=== PATIENT | male | born 1985 | race Caucasian/White ===

== ENCOUNTER 2019-08-29 11:15 | Emergency (ER) | payer MEDICAID ==
[~2019-08-29] VITALS: Ht 188 cm; Wt 93.0 kg
[2019-08-29 11:20] VITALS: BP 146/88
[2019-08-29] MEDS ORDERED: LIDOcaine 1% 30ml preserv. free vial IJ ONE (11:35)
[2019-08-29] MEDS ORDERED: mupirocin 2% ointment 22GM TP STA (12:35)
[2019-08-29] MEDS ORDERED: ONDA4TAB6 PO (12:40)
[2019-08-29] MEDS ORDERED: HYDR-3965 PO (12:40)
[2019-08-29] MEDS ORDERED: CEPH-572 PO (12:41)
== END 2019-08-29 13:08 | disposition home or self-care (01) ==
LOC: ER 11:15
DX: S61.214A Laceration without foreign body of right ring finger without damage to nail, initial encounter (principal); S67.194A Crushing injury of right ring finger, initial encounter; W20.8XXA Other cause of strike by thrown, projected or falling object, initial encounter; Y93.89 Activity, other specified; Y92.69 Other specified industrial and construction area as the place of occurrence of the external cause; Y99.9 Unspecified external cause status
CPT/HCPCS: 12002; 73140; 99283; J2001